=== PATIENT | female | born 1995 ===

== ENCOUNTER 2022-12-11 19:35 | Emergency (ER) | payer SELFPAY ==
[2022-12-11 19:42] VITALS: BP 130/94; PULSE 80; RESP 15; TEMP 37.2; O2SAT 100
[2022-12-11 21:32] VITALS: BP 128/87; PULSE 70; RESP 17; TEMP 37; O2SAT 100
--- NOTE | 2022-12-11 23:11 | PC.NURSE ---
patient came to desk and stated that she was going to follow up with her PMD. patient ambulatory and alert and oriented x4.
== END 2022-12-11 23:11 | disposition left against medical advice (07) ==
LOC: ANHED 23:23
DX: M54.50 Low back pain, unspecified (principal)
CPT/HCPCS: 99199; 99283